=== PATIENT | female | born 1960 | race Caucasian/White ===

== ENCOUNTER 2016-07-31 16:55 | Emergency (ER) | payer BC, OTHER ==
[2016-07-31 17:10] VITALS: BP 122/67
[2016-07-31] MEDS ORDERED: Silver Nitrate/Potassium Nitr* 1 EA STICK TOPICAL ONE (17:17)
[2016-07-31] MEDS ORDERED: Phenylephrine 1% NASAL* 15 ML BOT RIGHT NARE ONE (17:17)
[2016-07-31] MEDS ORDERED: Phenylephrine 1% NASAL* 15 ML BOT ONE (17:18)
[2016-07-31] MEDS ORDERED: Silver Nitrate/Potassium Nitr* 1 EA STICK ONE (17:18)
--- NOTE | 2016-07-31 17:22 | UC ---
Epistaxis Nasal HPI - HPI Summary HPI Summary: nosebleed since 1pm. She can control it by pressure on right side, but the minute she lets off pressure it bleeds again. Some dripping down back of throat , but mainly coming out on right side. Also had a subconjunctival hemorrhage appear yesterday. She is on Coumadin for an artificial valve, her INR was 5 two weeks ago. She stopped her Coumadin for a few days, then restarted. Recheck of INR a few days ago showed a level of 4, so she was told to stop the Coumadin. Hasn't taken any in a few days. No bleeding from gums. NO petechial rash. - History of Current Complaint Chief Complaint: UCGeneralIllness Stated Complaint: NOSE BLEED Time Seen by Provider: 07/31/16 17:11 Hx Obtained From: Patient, Family/Sales Operations Associate - Onset/Duration: Sudden Onset, Lasting Hours - 4.5 Timing: Constant Severity Initially: Mild Severity Currently: Mild Character: Heavy - brisk dripping when no pressure is applied Aggravating Factor(s): Nothing - except anticoagulation Alleviating Factor(s): Pressure Associated Signs And Symptoms: Positive: Recent Abnormal Coagulation Studies - INR 4.0 a few days ago, held Coumadin but still on aspirin Related Hx: ASA, Anticoagulants - Allergies/Home Medications Allergies/Adverse Reactions: Allergies Allergy/AdvReac Type Severity Reaction Status Date / Time Sulfamethoxazole Allergy hives, Verified 07/31/16 17:10 w/Trimethoprim dizziness [From Bactrim] Home Medications: Home Medications Aspirin EC Low Dose* [Ecotrin EC Low Dose*] 81 mg PO DAILY 07/31/16 [History Confirmed 07/31/16] Fenofibrate 150 mg PO DAILY 07/31/16 [History Confirmed 07/31/16] Ferrous Gluconate TAB* [Fergon TAB*] 325 mg PO DAILY 07/31/16 [History Confirmed 07/31/16] Magnesium Oxide TAB* [MagOx 400 TAB*] 400 mg PO DAILY 07/31/16 [History Confirmed 07/31/16] Rosuvastatin Calcium [Crestor] 40 mg PO DAILY 07/31/16 [History Confirmed ] Sotalol TAB* [Betapace TAB*] 80 mg PO BID 07/31/16 [History Confirmed 07/31/16] Warfarin TAB(*) [Coumadin TAB(*)] 1 dose PO 1700 07/31/16 [History Confirmed ] PMH/Surg Hx/FS Hx/Imm Hx Cardiovascular History Of: Reports: Cardiac Disorders - mitral valve and aorta replaced 2006 - Surgical History Surgical History: Yes Surgery Procedure, Year, and Place: cardiac - Family History Known Family History: Positive: Hypertension - Social History Occupation: Employed Full-time Lives: With Family Alcohol Use: Daily Substance Use Type: None Smoking Status (MU): Former Smoker Type: Cigarettes Amount Used/How Often: 1/2 ppd Review of Systems Constitutional: Negative Skin: Negative Eyes: Other - right subconjunctival hemorrhage ENT: Epistaxis Respiratory: Negative Cardiovascular: Negative Gastrointestinal: Negative Genitourinary: Negative Motor: Negative Neurovascular: Negative Musculoskeletal: Negative Neurological: Negative Psychological: Negative All Other Systems Reviewed And Are Negative: Yes Physical Exam Triage Information Reviewed: Yes Appearance: Well-Appearing, No Pain Distress, Well-Nourished Vital Signs: Initial Vital Signs Temp 98.3 F 07/31/16 17:04 Pulse 100 07/31/16 17:04 Resp 16 07/31/16 17:04 BP 122/67 07/31/16 17:04 Pulse Ox 97 07/31/16 17:04 Vital Signs Reviewed: Yes Eyes: Positive: Other: - right subconjunctival hemorrhage ENT: Positive: Other: - briskly dripping right naris. She can stop it with pressure on right side, but immediately starts up when she takes finger off. Epistaxis Nasal Course/Dx - Course Course Of Treatment: I had her blow her nose, put Gregg-Synephrine squirts up that side, then held pressure for 10 minutes. It was still bleeding briskly. Put a Rhino-Rocket packing in. She bled through that, even with 10 minutes of pressure. Called Dr. Shaffer at [facility] and her will drive her there - Differential Dx/Diagnosis Differential Diagnosis/HQI/PQRI: Coagulopathy, Epistaxis, Trauma Provider Diagnoses: epistaxis with coagulopathy - Physician Notifications Discussed Patient Care With: Dr. Shaffer Time Discussed With Above Provider: 18:00 Instructed by Provider To: MD Will See In ED Discharge - Discharge Plan Condition: Stable Disposition: TRANS HIGHER LVL OF CARE FAC Patient Education Materials: Nosebleed (ED)
== END 2016-07-31 18:02 | disposition short-term general hospital (02) ==
LOC: UCCORT 16:55
DX: R04.0 Epistaxis (principal); H11.31 Conjunctival hemorrhage, right eye; Z95.2 Presence of prosthetic heart valve; Z79.01 Long term (current) use of anticoagulants; Z88.2 Allergy status to sulfonamides; Z87.891 Personal history of nicotine dependence
CPT/HCPCS: 30901; 99212; A9270-GY; G0463